=== PATIENT | female | born 1965 | race Caucasian/White ===

== ENCOUNTER 2022-01-08 15:29 | Emergency (ER) | payer OTHER ==
[2022-01-08 15:45] VITALS: TEMP 97.8
--- NOTE | 2022-01-08 16:23 | ED ---
General Adult HPI - General Chief complaint: Recheck/Abnormal Lab/Rx Stated complaint: SOB Time Seen by Provider: 01/08/22 15:33 Source: patient, EMS Mode of arrival: EMS Limitations: no limitations - History of Present Illness Initial comments: Dictation was produced using [employer] dictation software. please excuse any grammatical, word or spelling errors. Chief Complaint: 56-year-old female presents to emergency Department for hypoxia History of Present Illness: 56-year-old female she was trying to get admitted to [facility] for detoxification. Patient had her vitals on an panel showed a SpO2 of 81%. Patient has no complaints. Patient has a chest pain shortness of breath. Denies any fever or constitutional symptoms. The ROS documented in this emergency department record has been reviewed and confirmed by me. Those systems with pertinent positive or negative responses have been documented in the HPI. All other systems are other negative and/or noncontributory. PHYSICAL EXAM: General Impression: Alert and oriented x3, not in acute distress HEENT: Normocephalic atraumatic, extra-ocular movements intact, pupils equal and reactive to light bilaterally, mucous membranes moist. Cardiovascular: Heart regular rate and rhythm Chest: Able to complete full sentences, no retractions, no tachypnea, clear to auscultation bilaterally Abdomen: abdomen soft, non-tender, non-distended, no organomegaly Musculoskeletal: Pulses present and equal in all extremities, no peripheral edema Motor: no focal deficits noted Neurological: CN II-XII grossly intact, no focal motor or sensory deficits noted Skin: Intact with no visualized rashes Psych: Normal affect and mood ED course: 56-year-old female presents to emergency Department for reported SpO2 of 81% at [facility] detox facility. Vital signs on arrival was 96% on room air. Patient's oxygen was rechecked and was 100% on room air. Patient has no complaints. Patient will be discharged. - Related Data Allergies Allergy/AdvReac Type Severity Reaction Status Date / Time No Known Allergies Allergy Verified 01/08/22 15:45 Review of Systems ROS Statement: Those systems with pertinent positive or pertinent negative responses have been documented in the HPI. ROS Other: All systems not noted in ROS Statement are negative. Past Medical History Past Medical History: Asthma, Coronary Artery Disease (CAD), COPD, Hypertension History of Any Multi-Drug Resistant Organisms: None Reported Past Surgical History: Section Additional Past Surgical History / Comment(s): "stomach surgery" Past Psychological History: No Psychological Hx Reported Smoking Status: Current some day smoker Past Alcohol Use History: Unable to Obtain Past Drug Use History: Unable to Obtain General Exam Limitations: no limitations Course Vital Signs 01/08/22 15:39 Temperature 97.8 F Pulse Rate 79 Respiratory 15 Rate Blood Pressure 113/73 O2 Sat by Pulse 96 Oximetry Disposition Clinical Impression: Wellness examination Disposition: HOME SELF-CARE Condition: Good Is patient prescribed a controlled substance at d/c from ED?: No Referrals: None,Stated [Primary Care Provider] - 1-2 days Time of Disposition: 16:23
[2022-01-08 17:48] VITALS: BP 121/82; PULSE 78; RESP 16
== END 2022-01-08 19:09 | disposition home or self-care (01) ==
LOC: EC 15:29
DX: Z00.8 Encounter for other general examination (principal); J45.909 Unspecified asthma, uncomplicated; I25.10 Atherosclerotic heart disease of native coronary artery without angina pectoris; J44.9 Chronic obstructive pulmonary disease, unspecified; I10 Essential (primary) hypertension; F17.200 Nicotine dependence, unspecified, uncomplicated
CPT/HCPCS: 99284

== ENCOUNTER 2023-11-22 22:37 | Inpatient (IN) | payer OTHER ==
[~2023-11-22 22:37] MED LIST: ASPIRIN 81 MG ONE; EPINEPHrine 10 ML SYRINGE (0.1 MG/ML) ONE; NITROGLYCERIN OINT 1 INCH/GM PACKET TOPICAL ONE; SODIUM CHLORIDE 0.9% 1,000 ML BAG ONE
[2023-11-23] MEDS ORDERED: HEPARIN SODIUM 1,000 UN/ML (10ML VL) ONE (02:46)
[2023-11-23] MEDS ORDERED: HEPARIN SOD,PORK IN 0.45% NACL 250 ML IV ONE (02:46)
[2023-11-23] MEDS ORDERED: LORazepam 2 MG/ML INJ ONE (04:55)
[2023-11-23] MEDS ORDERED: IPRATROPIUM-ALBUTEROL 3 ML NEB ONE ×2 (07:40→08:00)
[2023-11-23] MEDS ORDERED: MVI, ADULT NO.4 WITH VIT K 10 ML VIAL IV ONE (08:00)
[2023-11-23] MEDS ORDERED: DEXTROSE 5% IN WATER 250 ML BAG ONE (08:00)
[2023-11-23] MEDS ORDERED: AMIODARONE 50 MG/ML 9 ML VIAL IV ONE (08:00)
[2023-11-23] MEDS ORDERED: DEXTROSE 5%-0.45% NACL 1,000 ML BAG IV ONE (08:00)
[2023-11-23] MEDS ORDERED: PANTOPRAZOLE 40 MG TABLET PO ONE (09:15)
[2023-11-23] MEDS ORDERED: METOPROLOL TARTRATE 25 MG TAB ONE (09:15)
[2023-11-23] MEDS ORDERED: ASPIRIN 81 MG ONE (09:15)
[2023-11-23] MEDS ORDERED: THIAMINE 100 MG TAB ONE (09:16)
[2023-11-23] MEDS ORDERED: ATORVASTATIN 20 MG TAB ONE (09:16)
[2023-11-24] MEDS ORDERED: IPRATROPIUM-ALBUTEROL 3 ML NEB ONE (08:00)
[2023-11-24] MEDS ORDERED: METOPROLOL TARTRATE 25 MG TAB ONE (21:52)
[2023-11-24] MEDS ORDERED: levETIRAcetam 500 MG TAB ONE (21:52)
[2023-11-24] MEDS ORDERED: THIAMINE 100 MG TAB ONE (21:52)
[2023-11-25] MEDS ORDERED: ASPIRIN 81 MG ONE (11:33)
[2023-11-25] MEDS ORDERED: ATORVASTATIN 20 MG TAB ONE (11:33)
[2023-11-25] MEDS ORDERED: levETIRAcetam 500 MG TAB ONE (11:34)
[2023-11-25] MEDS ORDERED: PANTOPRAZOLE 40 MG TABLET PO ONE (11:34)
[2023-11-25] MEDS ORDERED: METOPROLOL TARTRATE 25 MG TAB ONE (11:34)
[2023-11-25] MEDS ORDERED: THIAMINE 100 MG TAB ONE (11:34)
[2023-11-25] MEDS ORDERED: ENOXAPARIN 40 MG/0.4 ML SYRINGE SQ ONE (11:35)
--- NOTE | 2023-12-13 12:25 | CT ---
EXAM: CT Head Without Intravenous Contrast CLINICAL HISTORY: seizure post cpr TECHNIQUE: Axial computed tomography images of the head/brain without intravenous contrast. CTDI is 49.2 mGy and DLP is 1125.4 mGy-cm. This CT exam was performed using one or more of the following dose reduction techniques: automated exposure control, adjustment of the mA and/or kV according to patient size, and/or use of iterative reconstruction technique. Coronal and sagittal reconstructions are performed. 319 images COMPARISON: No relevant prior studies available. FINDINGS: Brain: Moderate age-related generalized brain volume loss and chronic small vessel ischemic changes. 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 4 mm rounded hyper density in right fourth ventricle on series 201 image 15. Ventricles:Unremarkable. No ventriculomegaly. Bones/joints:No acute findings. Soft tissues:Unremarkable. Sinuses:Unremarkable as visualized. No acute sinusitis. Mastoid air cells:Unremarkable as visualized. No mastoid effusion. IMPRESSION: No definite CT evidence of acute infarct. If acute intracranial infarct remains a concern, MRI mayhelp to further evaluate if patient is a candidate. 4 mm rounded hyper density in right fourth ventricle is nonspecific. Differential includes choroid plexus, meningioma, vascular malformation, benign calcification, and less likely hemorrhage. Less likely etiologies cannot be excluded. Prior brain imaging may help to establish chronicity. Radiologist: Alejandro Yo M.D. Electronically Signed: 11/22/23 23:25 Study ready at 23:03 and initial results transmitted at 23:25 [facility]
--- NOTE | 2023-12-29 18:17 | XR ---
Patient Hang Kenney ID [id number] Order # EXAMINATION TYPE: XR chest 1V DATE OF EXAM: 12/04/2023 COMPARISON: No comparison available on downtime PACS. INDICATION: Chest pain TECHNIQUE: Single frontal view of the chest is obtained. FINDINGS: The heart size is normal. The pulmonary vasculature is normal. The lungs are clear. IMPRESSION: 1. No acute pulmonary process.
--- NOTE | 2024-01-03 11:41 | XR ---
Patient Santi Dunbar ID [id number] Order # EXAMINATION TYPE: XR humerus LT DATE OF EXAM: 12/04/2023 COMPARISON: No comparison available on downtime PACS. HISTORY: Pain tree fell on TECHNIQUE: 2 view left humerus FINDINGS: No acute fractures evident. The acromiohumeral space appears narrowed suggesting underlying rotator cuff tear. Joint spaces otherwise appear normal. No elevation of anterior fat pad is evident . No posterior fat pad elevation. Preliminary results were provided by the on-call radiologist. IMPRESSION: 1. No acute osseous abnormality.
== END 2023-11-25 15:47 | disposition home or self-care (01) | DRG 190 ==
LOC: 2SICU 22:37 → UNDOADMIN 22:37 → 2SICU 23:57 → UNDOADMIN 23:57 → 2SICU 11-23 → UNDODISIN 11-25 15:00
PROVIDERS: ADMIT Internal Medicine; ATTEND Internal Medicine
PROC: HZ2ZZZZ Detoxification Services for Substance Abuse Treatment (ICD-10-PCS; principal; 2023-11-22)
DX: R07.9 Chest pain, unspecified (principal); G93.40 Encephalopathy, unspecified; E87.1 Hypo-osmolality and hyponatremia; F14.10 Cocaine abuse, uncomplicated; F10.139 Alcohol abuse with withdrawal, unspecified; I25.5 Ischemic cardiomyopathy; I21.A1 Myocardial infarction type 2; R79.89 Other specified abnormal findings of blood chemistry; Z71.51 Drug abuse counseling and surveillance of drug abuser; R56.9 Unspecified convulsions; Z71.41 Alcohol abuse counseling and surveillance of alcoholic
CPT/HCPCS: 36600; 70450; 71045; 80053; 80061; 80306; 80320; 83036; 83605; 83735; 84484; 85025; 85379; 85610; 85730; 93005; 93306; 99291